=== PATIENT | male | born 1985 | race African-American/Black ===

== ENCOUNTER 2024-06-07 13:19 | Emergency (ER) | payer BC ==
[2024-06-07 13:29] VITALS: BMI 30.1
[2024-06-07] MEDS ORDERED: IBUPROFEN 400 MG TABLET (FP) PO ONE (14:42)
[2024-06-07] MEDS ORDERED: ACETAMINOPHEN 500 MG TABLET (FP) ONE (14:43)
[2024-06-07] MEDS: IBUPROFEN 400 MG TABLET (FP) PO ONE (15:07)
[2024-06-07] MEDS: ACETAMINOPHEN 500 MG TABLET (FP) PO ONE (15:07)
[2024-06-07 17:22] LABS: BASO % 0.5 % (0-2.0); EOS % 0.5 % (0-4.5); HEMATOCRIT 46.4 % (35.4-49); HEMOGLOBIN 14.8 GM/dL (11.7-16.9); LYMPH % 15.8 % (8-40); MCH 26.6 pg (25.7-33.7); MCHC 31.8 g/dl (32.0-35.9); MEAN CELL VOLUME 83.5 fl (80-96); MEAN PLT VOLUME 9.5 fl (7.5-11.1); MONO % 5.4 % (3.8-10.2); NEUT % 77.8 % (42.8-82.8); PLATELET COUNT 146 10^3/uL (134-434); RBC 5.55 M/mm3 (4.00-5.60); WHITE BLOOD COUNT 10.2 K/mm3 (4.0-10.0)
[2024-06-07 17:41] LABS: CALCIUM 9.1 mg/dL (8.5-10.1)
[2024-06-07 17:42] LABS: BLOOD UREA NITROGEN 13.9 mg/dL (7-18); POTASSIUM 3.9 mmol/L (3.5-5.1)
[2024-06-07 17:45] LABS: CREATININE 1.3 mg/dL (0.55-1.3)
[2024-06-07 17:46] LABS: BILIRUBIN,TOTAL 1.1 mg/dL (0.2-1); TOT PROT 7.7 g/dl (6.4-8.2)
[2024-06-07 18:34] LABS: HIV INTERPRETATION NEGATIVE (NEGATIVE)
[2024-06-07 18:46] VITALS: BP 115/79; RESP 18
[2024-06-14 00:58] VITALS: PULSE 83; TEMP 98.9
== END 2024-06-07 18:51 | disposition home or self-care (01) ==
LOC: JER 13:19
DX: R50.9 Fever, unspecified (principal); R53.1 Weakness; R00.0 Tachycardia, unspecified; R53.83 Other fatigue; Z20.822 Contact with and (suspected) exposure to COVID-19
CPT/HCPCS: 0241U-QW; 36415; 71046-TC-FY; 80053; 85025; 86803; 87389; 87536; 87651; 99284-25